=== PATIENT | male | born 1955 | race Caucasian/White ===

== ENCOUNTER 2020-03-23 14:02 | Inpatient (IN) | payer OTHER ==
[~2020-03-23] VITALS: Ht 182.9 cm; Wt 77.0 kg
--- NOTE | 2020-03-23 14:06 | NUR ---
patient arrives from [facility] with pneumothorax right lower lung. He has been sob for about a week. he is calm, talks complete sentences. patient has a history of htn, pulm embolism, pna,
[2020-03-23] MEDS ORDERED: METH750T87 PO (14:26)
[2020-03-23] MEDS ORDERED: GABA300C PO (14:26)
[2020-03-23] MEDS ORDERED: BUPR150T73 PO (14:26)
[2020-03-23] MEDS ORDERED: HYDR-3246 PO (14:26)
[2020-03-23] MEDS ORDERED: SODIUM CHLORIDE FLUSH 10ML SYR IVF ONE (14:30)
[2020-03-23] MEDS ORDERED: PLEASE ENTER ALLERGIES MC SCH (14:30)
[2020-03-23 14:34] LABS: BASOPHILS % (AUTO) 1 % (0-1); EOSINOPHILS % (AUTO) 2 % (1-7); LYMPHOCYTES % (AUTO) 11 % (22-44); MEAN CORPUSCULAR HEMOGLOBIN 31.4 pg (27.5-34.5); MEAN CORPUSCULAR HGB CONC 32.6 g/dL (33.2-36.2); MEAN PLATELET VOLUME 8.9 fL (7.4-10.4); MONOCYTES % (AUTO) 7 % (2-9); NEUTROPHILS % (AUTO) 79 % (42-75); PLATELET COUNT 195 x10^3/uL (130-400); RED BLOOD COUNT 4.75 x10^6/uL (4.38-5.82); RED CELL DISTRIBUTION WIDTH 13.1 % (9.4-14.8)
[2020-03-23 14:35] LABS: MD NO
--- NOTE | 2020-03-23 14:43 | NUR ---
BREAK RN: PT RESTING IN ROOM. VS STABLE. 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 NSR NOTED. CALL LIGHT IN PLACE. WILL CONTINUE TO MONITOR WHILE PRIMARY RN IS ON BREAK.
[2020-03-23 14:45] LABS: ALBUMIN 3.9 g/dL (3.4-5.0); ANION GAP 4 mmol/L (5-15); CALCIUM 9.9 mg/dL (8.5-10.1); CHLORIDE 108 mmol/L (98-107); CREATININE 1.26 mg/dL (0.7-1.3)
[2020-03-23 14:49] LABS: TROPONIN I < 0.015 ng/mL (0.000-0.045)
--- NOTE | 2020-03-23 15:21 | NUR ---
RFPORT GIVEN TO CYNDI SCOTT
[2020-03-23] MEDS ORDERED: NALOXONE 1 MG/ML, 2ML ONE (16:14)
[2020-03-23] MEDS ORDERED: FENTANYL PF 100 MCG/2ML ONE (16:14)
[2020-03-23] MEDS ORDERED: LIDOCAINE 1%, 10ML ONE (16:29)
--- NOTE | 2020-03-23 16:43 | NUR ---
PATIENT IN IR GETTING CHEST TUBE. CALLED, UPDATED. HER NUMBER [phone].
--- NOTE | 2020-03-23 17:01 | NUR ---
PATIENT RETURNED FROM IR WITH CHEST TUBE IN PLACE. HE IS CALM.
--- NOTE | 2020-03-23 17:03 | NUR ---
TUBE IS A 10 IRISH
--- NOTE | 2020-03-23 17:58 | NUR ---
REPORT TO CYNDI DIAZ. PATIENT IN BED, DENIES PAIN. WILL CALL TO UPDATE THAT PATIENT ADMITTED TO ROOM 308
[2020-03-23] MEDS ORDERED: ONDANSETRON ODT 4 MG PO PRN (18:00)
[2020-03-23] MEDS ORDERED: POLYETHYLENE GLYCOL 17 GM PACKET PO PRN (18:00)
[2020-03-23] MEDS ORDERED: BISACODYL 10 MG SUPP PR PRN (18:00)
[2020-03-23] MEDS ORDERED: ACETAMINOPHEN 325 MG TABLET PO PRN (18:00)
--- NOTE | 2020-03-23 18:20 | NUR ---
PATIENT GIVEN PEANUT BUTTER SANDWICH AND WATER PRIOR TO LEAVING. HE WAS HUNGRY. AOX4,CALM.
[2020-03-23 20:21] VITALS: BP 166/102
[2020-03-23] MEDS: GABAPENTIN 300 MG CAPSULE PO SCH (21:14)
[2020-03-23] MEDS: BUPROPION SR 150 MG TABLET PO SCH (21:14)
[2020-03-23] MEDS: SODIUM CHLORIDE FLUSH 10ML SYR IVF SCH (21:15)
[2020-03-24 00:07] VITALS: BP 142/90
[2020-03-24 07:01] VITALS: BP 159/94
[2020-03-24] MEDS: GABAPENTIN 300 MG CAPSULE PO SCH ×2 (09:35→20:15)
[2020-03-24] MEDS: HYDROcodone/APAP 10/325 MG TABLET PO SCH (09:36)
[2020-03-24] MEDS: BUPROPION SR 150 MG TABLET PO SCH ×2 (09:36→20:15)
[2020-03-24] MEDS: SENNA/DOCUSATE TABLET PO SCH (09:36)
[2020-03-24] MEDS: METHOCARBAMOL 750 MG TABLET PO SCH (09:36)
[2020-03-24] MEDS: SODIUM CHLORIDE FLUSH 10ML SYR IVF SCH ×2 (09:39→20:16)
[2020-03-24] MEDS ORDERED: LABETALOL 5MG/ML, 20ML IVPush PRN (11:00)
[2020-03-24] MEDS ORDERED: ENALAPRILAT 1.25 MG/ML, 2ML IV PRN (11:00)
[2020-03-24] MEDS: ENOXAPARIN 40 MG/0.4 ML SQ SCH (12:23)
[2020-03-24 13:01] VITALS: BP 132/80
[2020-03-24 20:03] VITALS: BP 148/89
[2020-03-25 01:07] VITALS: BP 135/89
[2020-03-25 06:23] LABS: BASOPHILS % (AUTO) 1 % (0-1); EOSINOPHILS % (AUTO) 3 % (1-7); LYMPHOCYTES % (AUTO) 14 % (22-44); MEAN CORPUSCULAR HEMOGLOBIN 32.3 pg (27.5-34.5); MEAN CORPUSCULAR HGB CONC 33.3 g/dL (33.2-36.2); MEAN PLATELET VOLUME 9.3 fL (7.4-10.4); MONOCYTES % (AUTO) 8 % (2-9); NEUTROPHILS % (AUTO) 74 % (42-75); PLATELET COUNT 185 x10^3/uL (130-400); RED BLOOD COUNT 4.95 x10^6/uL (4.38-5.82); RED CELL DISTRIBUTION WIDTH 13.4 % (9.4-14.8)
[2020-03-25 06:36] LABS: ANION GAP 3 mmol/L (5-15); CALCIUM 9.8 mg/dL (8.5-10.1); CHLORIDE 104 mmol/L (98-107); CREATININE 1.15 mg/dL (0.7-1.3)
[2020-03-25 07:16] VITALS: BP 147/91
[2020-03-25 07:31] LABS: MD SCAN
[2020-03-25] MEDS: HYDROcodone/APAP 10/325 MG TABLET PO SCH (08:21)
[2020-03-25] MEDS: METHOCARBAMOL 750 MG TABLET PO SCH (08:21)
[2020-03-25] MEDS: BUPROPION SR 150 MG TABLET PO SCH ×2 (08:21→21:23)
[2020-03-25] MEDS: GABAPENTIN 300 MG CAPSULE PO SCH ×2 (08:21→21:23)
[2020-03-25] MEDS: SENNA/DOCUSATE TABLET PO SCH (08:22)
[2020-03-25] MEDS: SODIUM CHLORIDE FLUSH 10ML SYR IVF SCH ×2 (08:22→21:24)
[2020-03-25] MEDS: ENOXAPARIN 40 MG/0.4 ML SQ SCH (11:00)
[2020-03-25 12:10] VITALS: BP 150/90
[2020-03-25] MEDS ORDERED: OMNIPAQUE 350 MG/ML, 75ML BOTTLE ONE (15:48)
[2020-03-25 18:28] VITALS: BP 124/83
[2020-03-25] MEDS ORDERED: GABAPENTIN 100 MG CAPSULE ONE (21:17)
[2020-03-26 02:12] VITALS: BP 150/93
[2020-03-26] MEDS: GABAPENTIN 300 MG CAPSULE PO SCH ×2 (07:58→20:45)
[2020-03-26] MEDS: METHOCARBAMOL 750 MG TABLET PO SCH (07:59)
[2020-03-26] MEDS: HYDROcodone/APAP 10/325 MG TABLET PO SCH (07:59)
[2020-03-26] MEDS: SENNA/DOCUSATE TABLET PO SCH (07:59)
[2020-03-26] MEDS: BUPROPION SR 150 MG TABLET PO SCH ×2 (07:59→20:45)
[2020-03-26] MEDS: SODIUM CHLORIDE FLUSH 10ML SYR IVF SCH ×2 (07:59→20:45)
[2020-03-26 08:02] VITALS: BP 137/94
[2020-03-26] MEDS: ENOXAPARIN 40 MG/0.4 ML SQ SCH (11:00)
[2020-03-26 12:16] VITALS: BP 126/85
[2020-03-26 19:38] VITALS: BP 119/78
[2020-03-26] MEDS ORDERED: FLU VACCINE PER PHARMACY IM ONE (20:30)
[2020-03-26] MEDS ORDERED: FLU VACC QS2020-21(6MOS UP)/PF 60MCG/0.5 ML SYR IM-VACC ONE (21:00)
[2020-03-27 01:47] VITALS: BP 131/76
[2020-03-27 07:27] VITALS: BP 138/92
[2020-03-27] MEDS: SODIUM CHLORIDE FLUSH 10ML SYR IVF SCH (07:50)
[2020-03-27] MEDS: BUPROPION SR 150 MG TABLET PO SCH (07:50)
[2020-03-27] MEDS: METHOCARBAMOL 750 MG TABLET PO SCH (07:50)
[2020-03-27] MEDS: HYDROcodone/APAP 10/325 MG TABLET PO SCH (07:51)
[2020-03-27] MEDS: GABAPENTIN 300 MG CAPSULE PO SCH (07:51)
[2020-03-27] MEDS: SENNA/DOCUSATE TABLET PO SCH (07:51)
[2020-03-27] MEDS: ENOXAPARIN 40 MG/0.4 ML SQ SCH (11:00)
== END 2020-03-27 11:31 | disposition home or self-care (01) | DRG 199 ==
LOC: ED 14:43 → 3N 17:16
PROVIDERS: ADMIT Family Medicine; ATTEND Family Medicine
PROC: 0W9930Z Drainage of Right Pleural Cavity with Drainage Device, Percutaneous Approach (ICD-10-PCS; principal; 2020-03-23)
DX: J93.83 Other pneumothorax (principal); J96.01 Acute respiratory failure with hypoxia; D35.00 Benign neoplasm of unspecified adrenal gland; D72.829 Elevated white blood cell count, unspecified; I10 Essential (primary) hypertension; I44.4 Left anterior fascicular block; J98.4 Other disorders of lung; Z81.8 Family history of other mental and behavioral disorders; Z82.5 Family history of asthma and other chronic lower respiratory diseases; Z86.711 Personal history of pulmonary embolism; Z87.891 Personal history of nicotine dependence
CPT/HCPCS: 32557; 36415; 99285; J3490; 32551; 71045; 71260; 80048; 82040; 84484; 85025; 90686; 93005; G0378; J1650; J3010; Q9967; C1729; J2310

== ENCOUNTER 2020-06-29 15:00 | Inpatient (IN) | payer OTHER ==
[~2020-06-29] VITALS: Ht 182.9 cm; Wt 77.0 kg
[~2020-06-29 15:00] MED LIST: BUPR150T73 PO; GABA300C PO; HYDR-3248 PO; METH750T87 PO
--- NOTE | 2020-06-29 15:35 | NUR ---
PT BIB VIA POV. PER PT RT SIDED CHEST DISCOMFORT SINCE THURSDAY. PT STATES "ITS NOT LIKE PAIN, IT IS JUST AN UNCOMFORTABLE FEELING". PT ALSO STATES HX "PNEUMOTHORAX IN MARCH" THIS FEELS THE SAME. PT RESTING IN GURNEY, MONITORING IN PLACE, AT BEDSIDE, EKG DONE IN TRIAGE, WCTM.
[2020-06-29 16:02] LABS: BASOPHILS % (AUTO) 1 % (0-1); EOSINOPHILS % (AUTO) 2 % (1-7); LYMPHOCYTES % (AUTO) 14 % (22-44); MEAN CORPUSCULAR HEMOGLOBIN 31.8 pg (27.5-34.5); MEAN CORPUSCULAR HGB CONC 33.3 g/dL (33.2-36.2); MONOCYTES % (AUTO) 8 % (2-9); NEUTROPHILS % (AUTO) 77 % (42-75); PLATELET COUNT 180 x10^3/uL (130-400); RED BLOOD COUNT 4.55 x10^6/uL (4.38-5.82); RED CELL DISTRIBUTION WIDTH 13.3 % (9.4-14.8)
[2020-06-29 16:05] LABS: ALBUMIN 3.8 g/dL (3.4-5.0); ANION GAP 7 mmol/L (5-15); CALCIUM 9.3 mg/dL (8.5-10.1); CHLORIDE 111 mmol/L (98-107); MD NO
[2020-06-29 16:11] LABS: ALANINE AMINOTRANSFERASE 19 U/L (12-78); ALKALINE PHOSPHATASE 37 U/L (45-117); BILIRUBIN,TOTAL 0.4 mg/dL (0.2-1.0); CREATININE 1.34 mg/dL (0.7-1.3); TOTAL PROTEIN 6.7 g/dL (6.4-8.2); TROPONIN I < 0.015 ng/mL (0.000-0.045)
--- NOTE | 2020-06-29 17:36 | NUR ---
PT RESTING IN [place] AT THIS TIME, MONITORING IN PLACE. WCTM.
[2020-06-29] MEDS ORDERED: ASPIRIN 81 MG TABLET CHEW PO ONE (18:00)
[2020-06-29] MEDS ORDERED: ASPIRIN 81 MG TABLET CHEW ONE (20:51)
[2020-06-29] MEDS ORDERED: OMNIPAQUE 350 MG/ML, 100ML BOTTLE ONE (21:00)
--- NOTE | 2020-06-29 21:25 | NUR ---
PT TO CT VIA [facility].
[2020-06-29] MEDS ORDERED: LABETALOL 5MG/ML, 20ML IVPush PRN (21:30)
[2020-06-29] MEDS ORDERED: LIDODERM 5% PATCH TD PRN (21:30)
[2020-06-29] MEDS ORDERED: morphine SULFATE 10 MG/ML, 1ML IVPush PRN (21:30)
[2020-06-29] MEDS ORDERED: ACETAMINOPHEN 325 MG TABLET PO PRN (21:30)
[2020-06-29] MEDS ORDERED: MELATONIN 5 MG TABLET PO PRN (21:30)
[2020-06-29] MEDS ORDERED: DOCUSATE 100 MG CAPSULE PO PRN (21:30)
[2020-06-29 22:16] LABS: TROPONIN I < 0.015 ng/mL (0.000-0.045)
[2020-06-29 23:34] VITALS: BP 188/102
[2020-06-29] MEDS: LACTATED RINGERS 1,000 ML IV SCH (23:52)
[2020-06-29] MEDS: HEPARIN 5,000 UNITS/ML, 1ML SQ SCH (23:52)
[2020-06-30 03:33] VITALS: BP 157/86
[2020-06-30 05:39] LABS: ANION GAP 3 mmol/L (5-15); CALCIUM 9.3 mg/dL (8.5-10.1); CHLORIDE 111 mmol/L (98-107)
[2020-06-30 05:44] LABS: CREATININE 1.11 mg/dL (0.7-1.3); TROPONIN I < 0.015 ng/mL (0.000-0.045)
[2020-06-30 05:51] LABS: BASOPHILS % (AUTO) 1 % (0-1); EOSINOPHILS % (AUTO) 3 % (1-7); LYMPHOCYTES % (AUTO) 20 % (22-44); MEAN CORPUSCULAR HEMOGLOBIN 32.2 pg (27.5-34.5); MEAN CORPUSCULAR HGB CONC 33.7 g/dL (33.2-36.2); MEAN PLATELET VOLUME 9.4 fL (7.4-10.4); MONOCYTES % (AUTO) 10 % (2-9); NEUTROPHILS % (AUTO) 66 % (42-75); PLATELET COUNT 153 x10^3/uL (130-400); RED BLOOD COUNT 4.27 x10^6/uL (4.38-5.82); RED CELL DISTRIBUTION WIDTH 13.3 % (9.4-14.8)
[2020-06-30 05:58] LABS: MD NO
[2020-06-30] MEDS: LACTATED RINGERS 1,000 ML IV SCH (08:00)
[2020-06-30] MEDS ORDERED: REGADENOSON 0.4 MG/5 ML SYRINGE ONE (08:24)
[2020-06-30] MEDS: HEPARIN 5,000 UNITS/ML, 1ML SQ SCH ×2 (08:35→17:43)
[2020-06-30 12:35] VITALS: BP 166/101
[2020-06-30 13:56] VITALS: BP 158/94
[2020-06-30 14:57] VITALS: BP 155/92
[2020-06-30] MEDS: METOPROLOL TARTRATE 25 MG TAB PO SCH (17:44)
[2020-06-30 19:13] VITALS: BP 156/90
[2020-06-30] MEDS: BUPROPION SR 150 MG TABLET PO SCH (20:29)
[2020-06-30] MEDS: GABAPENTIN 300 MG CAPSULE PO SCH (20:29)
[2020-07-01 01:36] VITALS: BP 144/90
[2020-07-01] MEDS: HEPARIN 5,000 UNITS/ML, 1ML SQ SCH ×2 (02:42→10:01)
[2020-07-01] MEDS: METOPROLOL TARTRATE 25 MG TAB PO SCH (05:42)
[2020-07-01 06:58] VITALS: BP 160/104
[2020-07-01] MEDS ORDERED: METO25TA35 PO (07:30)
[2020-07-01] MEDS ORDERED: AMLO-211 PO (07:30)
[2020-07-01] MEDS: BUPROPION SR 150 MG TABLET PO SCH (08:42)
[2020-07-01] MEDS: GABAPENTIN 300 MG CAPSULE PO SCH (08:42)
[2020-07-01] MEDS ORDERED: METHOCARBAMOL 750 MG TABLET PO SCH (09:00)
[2020-07-01] MEDS ORDERED: AMLODIPINE 10 MG TAB PO SCH (09:00)
[2020-07-01 10:00] VITALS: BP 143/90
[2020-07-01] MEDS ORDERED: METOPROLOL TARTRATE 50 MG TAB PO SCH (18:00)
== END 2020-07-01 11:23 | disposition home or self-care (01) | DRG 313 ==
LOC: ED 17:01 → EDIP 18:31 → 5SO 22:50 → DCLOUNGE 07-01 11:12
PROVIDERS: ADMIT Hospitalist; ATTEND Internal Medicine
DX: R07.89 Other chest pain (principal); N17.9 Acute kidney failure, unspecified; Q60.0 Renal agenesis, unilateral; I10 Essential (primary) hypertension; R55 Syncope and collapse; R73.9 Hyperglycemia, unspecified; J43.9 Emphysema, unspecified; Z82.5 Family history of asthma and other chronic lower respiratory diseases; Z86.711 Personal history of pulmonary embolism; Z87.891 Personal history of nicotine dependence
CPT/HCPCS: 36415; 71045; 71046; 71275; 78452; 80048; 80053; 83735; 84100; 84443; 84484; 85025; 85379; 93005; 93017; 93306; 99285; G0378; J1644; J2785; Q9967; A9502; J7120

== ENCOUNTER 2020-11-02 12:33 | Inpatient (IN) | payer OTHER ==
[~2020-11-02] VITALS: Ht 182.9 cm; Wt 78.2 kg
[~2020-11-02 12:33] MED LIST changes: +AMLO-211 PO; +METO25TA35 PO
--- NOTE | 2020-11-02 12:45 | NUR ---
HENRY RN: EKG COMPLETED IN TRIAGE
--- NOTE | 2020-11-02 13:15 | NUR ---
BREAK RN: THIS IS A 64 YO M REF [place] C/O SOB STARTING TODAY. PT REPORTS HX COPD BUT NO HOME O2. PT HYPOXIC IN TRIAGE. PIV STARTED, 1ST SET OF BLOOD CULTURES DRAWN, LAB AT BEDSIDE FOR 2ND SET. MARIA LUISA NUNEZ AT BEDSIDE FOR EVAL. PT RESTING ON GURNEY W/ CALL LIGHT IN REACH AND FAMILY AT BEDSIDE. CONNECTED TO ALL MONITORS. PT TACHYPNEIC, OTHER VS WDL.
[2020-11-02] MEDS ORDERED: HYDR1TAB53 PO (13:17)
[2020-11-02] MEDS ORDERED: NAPR-868 PO (13:17)
[2020-11-02 13:22] LABS: MEAN CORPUSCULAR HEMOGLOBIN 33.6 pg (27.5-34.5); MEAN CORPUSCULAR HGB CONC 33.1 g/dL (33.2-36.2); PLATELET COUNT 185 x10^3/uL (130-400); RED BLOOD COUNT 3.72 x10^6/uL (4.38-5.82); RED CELL DISTRIBUTION WIDTH 15.3 % (9.4-14.8)
[2020-11-02 13:28] LABS: ALBUMIN 3.5 g/dL (3.4-5.0); ANION GAP 9 mmol/L (5-15); CALCIUM 9.7 mg/dL (8.5-10.1); CHLORIDE 106 mmol/L (98-107)
[2020-11-02 13:30] LABS: MD YES
[2020-11-02] MEDS ORDERED: CEFTRIAXONE 1,000 MG in DEXTROSE 5% 50 ML IVPB ONE (13:30)
[2020-11-02 13:33] LABS: ALANINE AMINOTRANSFERASE 19 U/L (12-78); ALKALINE PHOSPHATASE 47 U/L (45-117); BILIRUBIN,TOTAL 0.7 mg/dL (0.2-1.0); CREATININE 1.85 mg/dL (0.7-1.3); TROPONIN I < 0.015 ng/mL (0.000-0.045)
[2020-11-02 13:46] LABS: BAND#(MANUAL) 1.79 x10^3/uL; BANDS%(MANUAL) 7 % (0-7); LYMPH#(MANUAL) 0.77 x10^3/uL (1-3.4); LYMPHS% (MANUAL) 3 % (22-44); MONOS#(MANUAL) 1.28 x10^3/uL (0.3-2.7); MONOS% (MANUAL) 5 % (2-9); SEG#(MANUAL) 21.68 x10^3/uL (1.8-6.8); SEGS% (MANUAL) 85 % (42-75)
[2020-11-02 13:47] LABS: ANISOCYTOSIS 1+
[2020-11-02 13:48] LABS: <PLATELET ESTIMATE> ADEQUATE; <PLT MORPHOLOGY> NORMAL PLT MORPH
[2020-11-02] MEDS ORDERED: ALBUTEROL/IPRATROPIUM 2.5MG/0.5MG, 3 ML ONE (13:58)
[2020-11-02] MEDS ORDERED: ALBUTEROL/IPRATROPIUM 2.5MG/0.5MG, 3 ML NEB ONE (14:00)
[2020-11-02] MEDS ORDERED: SODIUM CHLORIDE 0.9% 1,000 ML IV ONE (14:00)
[2020-11-02] MEDS ORDERED: AZITHROMYCIN 500 MG in SODIUM CHLORIDE 0.9% 250 ML IV ONE (14:00)
[2020-11-02] MEDS ORDERED: BACLOFEN 10 MG TABLET PO PRN (15:00)
[2020-11-02] MEDS ORDERED: ONDANSETRON 2MG/ML, 2ML IVPush PRN (15:00)
[2020-11-02] MEDS ORDERED: ENALAPRILAT 1.25 MG/ML, 2ML IVPush PRN (15:00)
[2020-11-02] MEDS ORDERED: ACETAMINOPHEN 325 MG TABLET PO PRN (15:00)
[2020-11-02] MEDS ORDERED: ONDANSETRON ODT 4 MG PO PRN (15:00)
[2020-11-02] MEDS ORDERED: hydrALAzine 20 MG/ML, 1ML IVPush PRN (15:00)
[2020-11-02] MEDS ORDERED: BUTALB/APAP/CAFFEINE 50MG/325MG/40MG PO PRN (15:00)
[2020-11-02 15:32] VITALS: BP 127/81
[2020-11-02] MEDS ORDERED: ALBUTEROL HFA 90 MCG/SPRAY INH PRN (16:30)
[2020-11-02] MEDS: METOPROLOL TARTRATE 50 MG TAB PO SCH (17:29)
[2020-11-02] MEDS: ASCORBIC ACID 500 MG TABLET PO SCH (17:29)
[2020-11-02] MEDS: HEPARIN 5,000 UNITS/ML, 1ML SQ SCH (17:29)
[2020-11-02] MEDS: GABAPENTIN 300 MG CAPSULE PO SCH ×2 (17:29→20:15)
[2020-11-02] MEDS ORDERED: OMNIPAQUE 350 MG/ML, 75ML BOTTLE ONE (17:52)
[2020-11-02 20:11] VITALS: BP 116/75
[2020-11-02] MEDS: MELATONIN 5 MG TABLET PO SCH (20:15)
[2020-11-03 00:42] VITALS: BP 121/78
[2020-11-03] MEDS: HEPARIN 5,000 UNITS/ML, 1ML SQ SCH ×3 (01:13→17:46)
[2020-11-03] MEDS: CEFTRIAXONE 1,000 MG in DEXTROSE 5% 50 ML IVPB SCH ×2 (01:13→12:36)
[2020-11-03 05:40] LABS: BASOPHILS % (AUTO) 0 % (0-1); EOSINOPHILS % (AUTO) 1 % (1-7); LYMPHOCYTES % (AUTO) 6 % (22-44); MEAN CORPUSCULAR HEMOGLOBIN 34.1 pg (27.5-34.5); MEAN CORPUSCULAR HGB CONC 33.2 g/dL (33.2-36.2); MEAN PLATELET VOLUME 9.3 fL (7.4-10.4); MONOCYTES % (AUTO) 6 % (2-9); NEUTROPHILS % (AUTO) 86 % (42-75); PLATELET COUNT 139 x10^3/uL (130-400); RED BLOOD COUNT 3.35 x10^6/uL (4.38-5.82); RED CELL DISTRIBUTION WIDTH 15.2 % (9.4-14.8)
[2020-11-03 05:41] LABS: MD NO
[2020-11-03 05:48] LABS: ALANINE AMINOTRANSFERASE 15 U/L (12-78); ALBUMIN 2.7 g/dL (3.4-5.0); ANION GAP 7 mmol/L (5-15); CALCIUM 8.8 mg/dL (8.5-10.1); CHLORIDE 109 mmol/L (98-107); CREATININE 1.15 mg/dL (0.7-1.3)
[2020-11-03 05:50] LABS: ALKALINE PHOSPHATASE 42 U/L (45-117); BILIRUBIN,TOTAL 0.3 mg/dL (0.2-1.0)
[2020-11-03] MEDS: ASPIRIN 325 MG TABLET EC PO SCH (05:50)
[2020-11-03] MEDS: METOPROLOL TARTRATE 50 MG TAB PO SCH ×2 (05:52→17:51)
[2020-11-03] MEDS ORDERED: ALBUTEROL SULFATE 2.5 MG/3 ML NPPB PRN (06:30)
[2020-11-03 07:09] VITALS: BP 136/85
[2020-11-03] MEDS ORDERED: CHOLECALCIFEROL 5,000u TAB PO SCH (09:00)
[2020-11-03] MEDS ORDERED: ZINC SULFATE 220 MG CAPSULE PO SCH (09:00)
[2020-11-03] MEDS: METHOCARBAMOL 750 MG TABLET PO SCH (09:18)
[2020-11-03] MEDS: ASCORBIC ACID 500 MG TABLET PO SCH (09:18)
[2020-11-03] MEDS: BUPROPION SR 150 MG TABLET PO SCH (09:18)
[2020-11-03] MEDS: SENNA/DOCUSATE TABLET PO SCH (09:19)
[2020-11-03] MEDS: GABAPENTIN 300 MG CAPSULE PO SCH ×3 (09:19→20:50)
[2020-11-03] MEDS: MULTIVITS,STRESS FORMULA 1 TABLET PO SCH (09:19)
[2020-11-03] MEDS: AMLODIPINE 10 MG TAB PO SCH (09:19)
[2020-11-03] MEDS: AZITHROMYCIN 500 MG in SODIUM CHLORIDE 0.9% 250 ML IV SCH (09:21)
[2020-11-03 14:13] VITALS: BP 135/81
[2020-11-03 17:50] VITALS: BP 117/76
[2020-11-03 19:25] VITALS: BP 120/77
[2020-11-03] MEDS: MELATONIN 5 MG TABLET PO SCH (20:50)
[2020-11-04 01:25] VITALS: BP 133/80
[2020-11-04] MEDS: HEPARIN 5,000 UNITS/ML, 1ML SQ SCH ×3 (01:38→17:04)
[2020-11-04] MEDS: CEFTRIAXONE 1,000 MG in DEXTROSE 5% 50 ML IVPB SCH ×2 (01:38→13:00)
[2020-11-04 05:56] VITALS: BP 144/79
[2020-11-04] MEDS: METOPROLOL TARTRATE 50 MG TAB PO SCH ×2 (05:56→17:04)
[2020-11-04] MEDS: ASPIRIN 325 MG TABLET EC PO SCH (05:56)
[2020-11-04 06:32] VITALS: BP 138/87
[2020-11-04 07:34] LABS: BASOPHILS % (AUTO) 0 % (0-1); EOSINOPHILS % (AUTO) 2 % (1-7); LYMPHOCYTES % (AUTO) 10 % (22-44); MEAN CORPUSCULAR HEMOGLOBIN 34.3 pg (27.5-34.5); MEAN CORPUSCULAR HGB CONC 33.8 g/dL (33.2-36.2); MEAN PLATELET VOLUME 8.7 fL (7.4-10.4); MONOCYTES % (AUTO) 10 % (2-9); NEUTROPHILS % (AUTO) 78 % (42-75); PLATELET COUNT 151 x10^3/uL (130-400); RED BLOOD COUNT 3.25 x10^6/uL (4.38-5.82); RED CELL DISTRIBUTION WIDTH 14.9 % (9.4-14.8)
[2020-11-04 07:53] LABS: MD NO
[2020-11-04] MEDS: AZITHROMYCIN 500 MG in SODIUM CHLORIDE 0.9% 250 ML IV SCH (08:37)
[2020-11-04] MEDS: BUPROPION SR 150 MG TABLET PO SCH (08:37)
[2020-11-04] MEDS: SENNA/DOCUSATE TABLET PO SCH (08:38)
[2020-11-04] MEDS: AMLODIPINE 10 MG TAB PO SCH (08:38)
[2020-11-04] MEDS: GABAPENTIN 300 MG CAPSULE PO SCH ×3 (08:38→20:36)
[2020-11-04] MEDS: MULTIVITS,STRESS FORMULA 1 TABLET PO SCH (08:41)
[2020-11-04] MEDS: METHOCARBAMOL 750 MG TABLET PO SCH (08:43)
[2020-11-04 14:26] VITALS: BP 132/77
[2020-11-04 18:35] VITALS: BP 134/85
[2020-11-04] MEDS: MELATONIN 5 MG TABLET PO SCH (20:36)
[2020-11-05 00:28] VITALS: BP 139/85
[2020-11-05] MEDS: CEFTRIAXONE 1,000 MG in DEXTROSE 5% 50 ML IVPB SCH (00:52)
[2020-11-05] MEDS: HEPARIN 5,000 UNITS/ML, 1ML SQ SCH ×2 (00:53→08:14)
[2020-11-05] MEDS: ASPIRIN 325 MG TABLET EC PO SCH (05:23)
[2020-11-05] MEDS: METOPROLOL TARTRATE 50 MG TAB PO SCH (05:23)
[2020-11-05 07:06] VITALS: BP 135/81
[2020-11-05] MEDS: AZITHROMYCIN 500 MG in SODIUM CHLORIDE 0.9% 250 ML IV SCH (08:13)
[2020-11-05] MEDS: BUPROPION SR 150 MG TABLET PO SCH (08:13)
[2020-11-05] MEDS: GABAPENTIN 300 MG CAPSULE PO SCH (08:13)
[2020-11-05] MEDS: AMLODIPINE 10 MG TAB PO SCH (08:13)
[2020-11-05] MEDS: SENNA/DOCUSATE TABLET PO SCH (08:13)
[2020-11-05] MEDS: MULTIVITS,STRESS FORMULA 1 TABLET PO SCH (08:13)
[2020-11-05] MEDS: METHOCARBAMOL 750 MG TABLET PO SCH (08:15)
[2020-11-05] MEDS ORDERED: CEFD300C37 PO ×2 (11:01→12:55)
[2020-11-05] MEDS ORDERED: AZIT250T89 PO (11:01)
[2020-11-05] MEDS ORDERED: AZIT250T PO (12:55)
== END 2020-11-05 12:38 | disposition home or self-care (01) | DRG 871 ==
LOC: ED 14:10 → EDIP 14:17 → 3N 15:03 → DCLOUNGE 11-05 12:32
PROVIDERS: ADMIT Internal Medicine; ATTEND Family Medicine
DX: A41.9 Sepsis, unspecified organism (principal); J96.01 Acute respiratory failure with hypoxia; J18.1 Lobar pneumonia, unspecified organism; J44.0 Chronic obstructive pulmonary disease with (acute) lower respiratory infection; I10 Essential (primary) hypertension; N28.9 Disorder of kidney and ureter, unspecified; Z20.822 Contact with and (suspected) exposure to COVID-19
CPT/HCPCS: 36415; 71045; 71260; 80053; 83605; 83735; 83880; 84100; 84145; 84484; 85025; 87040; 93005; 96365; 99285; G0378; J0456; J0696; J1644; Q9967; U0005; J7030; J7050; U0003